=== PATIENT | male | born 1965 | race Two or more races ===

== ENCOUNTER 2018-03-19 08:21 | Day surgery (SDC) | payer SELFPAY ==
[2018-03-19 08:53] LABS: Absolute Lymphocytes (CBC) 1.2 K/uL (0.7-4.9); Absolute Monocytes 0.5 K/uL (0.1-1.3); Absolute Neutrophil 3.3 K/uL (1.8-8.0); Basophils % 0.6 % (0-1.3); Eosinophils % 1.8 % (0-4.4); Hematocrit 46.6 % (39.6-49.0); Lymphocytes % 23.9 % (15.3-44.8); MPV 9.5 fL (7.6-11.3); Monocytes % 9.5 % (3.3-12.3); RBC Red Blood Cell Count 5.19 M/uL (4.33-5.43)
[2018-03-19 08:59] LABS: Protime INR 0.89
[2018-03-19 09:11] LABS: ALT/SGPT 38 U/L (12-78); AST/SGOT 26 U/L (15-37); Albumin 4.1 g/dL (3.4-5.0); Alkaline Phosphatase 110 U/L (45-117); BUN Blood Urea Nitrogen 16 mg/dL (7-18); Bicarbonate 27 mmol/L (21-32); Bilirubin Direct < 0.1 mg/dL (0-0.2); Bilirubin Total 0.2 mg/dL (0.2-1.0); Glucose Level 117 mg/dL (74-106); Magnesium 2.3 mg/dL (1.8-2.4); NT PRO-BNP 16 pg/mL (<125); Potassium 4.2 mmol/L (3.5-5.1); Protein, Total 7.8 g/dL (6.4-8.2); Sodium Level 140 mmol/L (136-145); Troponin (Emerg Dept Use Only) < 0.02 ng/mL (0.0-0.045)
[2018-03-19] MEDS ORDERED: ASPIRIN 81 MG CHEWABLE TABLET ONE (09:18)
[2018-03-19] MEDS ORDERED: D5 0.45 NS 1,000 ML with POTASSIUM CL 10 MEQ IV SCH ×2 (09:30)
--- NOTE | 2018-03-19 09:35 | EDPHYS ---
Physician Documentation [facility] Name: Ney Mortensen Age: 52 yrs Sex: Male : 1965 Arrival Date: 03/19/2018 Time: 08:23 Bed 8 Private MD: None, None ED Physician Stefanie Rome HPI: 03/19 08:46 This 52 yrs old Male presents to ER via Ambulatory with complaints of Chest Pain. ma2 08:46 The patient or guardian reports chest pain that is located primarily in the substernal ma2 area, epigastric area. Onset: gradually, 2 day(s) ago. Historical: - Allergies: 08:35 No Known Allergies; hb - Home Meds: 08:35 None [Active]; hb - PMHx: 08:35 High Cholesterol; hb - PSHx: 08:35 None; hb - Immunization history:: Adult Immunizations up to date. - Social history:: Smoking status: Patient uses tobacco products, cigars, Patient/guardian denies using alcohol, street drugs, The patient lives with family. - Ebola Screening: : No symptoms or risks identified at this time. - Family history:: not pertinent. - Hospitalizations: : No recent hospitalization is reported. ROS: 08:50 Constitutional: Negative for fever, chills, and weight loss. ma2 08:50 Neck: Negative for injury, pain, and swelling, Respiratory: Negative for shortness of breath, cough, wheezing, and pleuritic chest pain, Abdomen/GI: Negative for abdominal pain, nausea, diarrhea, and constipation. 08:50 Cardiovascular: Positive for chest pain, Negative for edema, orthopnea, paroxysmal nocturnal dyspnea. 08:50 All other systems are negative. Exam: 08:50 Constitutional: This is a well developed, well nourished patient who is awake, alert, ma2 and in no acute distress. Head/Face: Normocephalic, atraumatic. 08:50 Chest/axilla: Normal chest wall appearance and motion. Nontender with no deformity. No lesions are appreciated. Cardiovascular: Regular rate and rhythm with a normal S1 and S2. No gallops, murmurs, or rubs. Normal PMI, no JVD. No pulse deficits. Respiratory: Lungs have equal breath sounds bilaterally, clear to auscultation and percussion. No rales, rhonchi or wheezes noted. No increased work of breathing, no retractions or nasal flaring. Abdomen/GI: Soft, non-tender, with normal bowel sounds. No distension or tympany. No guarding or rebound. No evidence of tenderness throughout. MS/ Extremity: Pulses equal, no cyanosis. Neurovascular intact. Full, normal range of motion. Neuro: Awake and alert, GCS 15, oriented to person, place, time, and situation. Cranial nerves II-XII grossly intact. Motor strength 5/5 in all extremities. Sensory grossly intact. Cerebellar exam normal. Normal gait. 08:50 Cardiovascular: Rate: normal, Edema: is not appreciated, JVD: is not appreciated. Vital Signs: 08:35 BP 159 / 104; Pulse 72; Resp 16; Temp 97.7; Pulse Ox 99% on R/A; Pain 7/10; hb 09:43 BP 143 / 92; Pulse 68; Resp 16; Temp 98.0; Pulse Ox 96% ; lt1 11:00 BP 134 / 96; Pulse 66; Resp 16 S; Pulse Ox 97% on R/A; jl7 MDM: 08:32 Patient medically screened. ma2 08:50 Differential diagnosis: abnormal EKG, acute pericarditis, anxiety, coronary artery ma2 disease chest wall pain, gastroesophageal reflux disease (GERD), myocarditis. The patient was given aspirin in the Emergency Department. GUILLERMINA Risk Score: not applicable. 09:05 Data reviewed: vital signs, nurses notes. Data interpreted: ekg monitor:. ma2 Counseling: I had a detailed discussion with the patient and/or guardian regarding: the historical points, exam findings, and any diagnostic results supporting the discharge/admit diagnosis, the presence of at least one elevated blood pressure reading (>120/80) during this emergency department visit, the need for further work-up and treatment in the hospital. ED course: discussed with dr. wasserman who recommend admission npo for cath today no stemi on ekg . 10:14 ED course: discussed w dr armstrong . ut2 03/19 08:33 Order name: Basic Metabolic Panel; Complete Time: 09:13 ut2 03/19 08:33 Order name: CBC with Diff; Complete Time: 09:13 ut2 03/19 08:33 Order name: LFT's; Complete Time: 09:13 ut03/19 08:33 Order name: Magnesium; Complete Time: 09:13 ut03/19 08:33 Order name: NT PRO-BNP; Complete Time: 09:13 ut03/19 08:33 Order name: PT-INR; Complete Time: 09:13 ut03/19 08:33 Order name: Troponin (emerg Dept Use Only); Complete Time: 09:13 ut03/19 08:33 Order name: XRAY Chest (1 view) [facility] 03/19 08:33 Order name: EKG; Complete Time: 08:33 ut03/19 08:33 Order name: Cardiac monitoring; Complete Time: 08:45 [facility] 03/19 08:33 Order name: EKG - Nurse/Tech; Complete Time: 09:13 [facility] 03/19 08:49 Order name: Lipid Profile [facility] 03/19 08:33 Order name: IV Saline Lock; Complete Time: 08:45 ut03/19 08:33 Order name: Labs collected and sent; Complete Time: 08:45 [facility] 03/19 08:33 Order name: O2 Per Protocol; Complete Time: 08:45 ut03/19 08:33 Order name: O2 Sat Monitoring; Complete Time: 08:45 ut03/19 09:14 Order name: NPO; Complete Time: 09:49 ma2 Administered Medications: 09:13 Drug: Aspirin Chewable Tablet 324 mg Route: PO; jl7 09:49 Follow up: Response: No adverse reaction jl7 09:48 Drug: Dextrose 5 % in 1/2 Normal Saline with KCl 10 mEq/L 1000 ml Route: IV; Rate: 100 jl7 ml/hr; Site: right antecubital; Disposition: 03/19/18 09:34 Hospitalization ordered by Mercedes Armstrong for Observation. Preliminary diagnosis is Unstable angina. - Bed requested for Telemetry/MedSurg (observation). - Status is Observation. jl7 - Condition is Stable. - Problem is new. - Symptoms are unchanged. UTI on Admission? No Signatures: Dispatcher [employer] EDMS Hiral Todd RN RITO Vaishali Tavarez RN RN jl7 Stefanie Rome MD MD ma2 Corrections: (The following items were deleted from the chart) 11:38 09:34 Hospitalization Ordered by Mercedes Armstrong MD for Observation. Preliminary diagnosis jl7 is Unstable angina. Bed requested for Telemetry/MedSurg (observation). Status is Observation. Condition is Stable. Problem is new. Symptoms are unchanged. UTI on Admission? No. ma2
--- NOTE | 2018-03-19 09:35 | ER ---
Nurse's Notes [facility] Name: Ney Mortensen Age: 52 yrs Sex: Male : 1965 Arrival Date: 03/19/2018 Time: 08:23 Bed 8 Private MD: None, None Diagnosis: Unstable angina Presentation: 03/19 08:34 Presenting complaint: Patient states: Intermittent left sided chest pain that started hb last night while at rest. Denies SOB/nausea. Pain is described as squeezing, does not radiate. Transition of care: patient was not received from another setting of care. Onset of symptoms was March 18, 2018. Risk Assessment: Do you want to hurt yourself or someone else? Patient reports no desire to harm self or others. Initial Sepsis Screen: Does the patient meet any 2 criteria? No. Patient's initial sepsis screen is negative. Does the patient have a suspected source of infection? No. Patient's initial sepsis screen is negative. Care prior to arrival: None. 08:34 Method Of Arrival: Ambulatory hb 08:34 Acuity: PATRICK 3 hb Historical: - Allergies: 08:35 No Known Allergies; hb - Home Meds: 08:35 None [Active]; hb - PMHx: 08:35 High Cholesterol; hb - PSHx: 08:35 None; hb - Immunization history:: Adult Immunizations up to date. - Social history:: Smoking status: Patient uses tobacco products, cigars, Patient/guardian denies using alcohol, street drugs, The patient lives with family. - Ebola Screening: : No symptoms or risks identified at this time. - Family history:: not pertinent. - Hospitalizations: : No recent hospitalization is reported. Screenin:36 Abuse screen: Denies threats or abuse. Denies injuries from another. Nutritional hb screening: No deficits noted. Tuberculosis screening: No symptoms or risk factors identified. Fall Risk None identified. Assessment: 08:45 General: Appears in no apparent distress. uncomfortable, Behavior is cooperative, jl7 anxious. Pain: Complains of pain in anterior aspect of left upper chest Pain does not radiate. Pain currently is 6 out of 10 on a pain scale. Quality of pain is described as squeezing, Pain began 1 day ago. Is intermittent. Neuro: Level of Consciousness is awake, alert, obeys commands, Oriented to person, place, time, situation. Cardiovascular: Reports diaphoresis, Denies nausea, shortness of breath, Heart tones S1 S2 present Rhythm is sinus rhythm. Respiratory: Airway is patent Respiratory effort is even, unlabored, Respiratory pattern is regular, symmetrical, Breath sounds are clear bilaterally. GI: No signs and/or symptoms were reported involving the gastrointestinal system. : No signs and/or symptoms were reported regarding the genitourinary system. EENT: No signs and/or symptoms were reported regarding the EENT system. Derm: Skin is diaphoretic, Skin is normal, Skin temperature is warm. Musculoskeletal: No signs and/or symptoms reported regarding the musculoskeletal system. 10:00 Reassessment: Patient appears in no apparent distress at this time. No changes from jl7 previously documented assessment. Patient and/or family updated on plan of care and expected duration. Pain level reassessed. Patient is alert, oriented x 3, equal unlabored respirations, skin warm/dry/pink. 11:00 Reassessment: Patient appears in no apparent distress at this time. No changes from jl7 previously documented assessment. Patient and/or family updated on plan of care and expected duration. Pain level reassessed. Patient is alert, oriented x 3, equal unlabored respirations, skin warm/dry/pink. Vital Signs: 08:35 BP 159 / 104; Pulse 72; Resp 16; Temp 97.7; Pulse Ox 99% on R/A; Pain 7/10; hb 09:43 BP 143 / 92; Pulse 68; Resp 16; Temp 98.0; Pulse Ox 96% ; lt1 11:00 BP 134 / 96; Pulse 66; Resp 16 S; Pulse Ox 97% on R/A; jl7 ED Course: 08:23 Patient arrived in ED. mr 08:24 None, None is Private Physician. mr 08:32 Stefanie Rome MD is Attending Physician. ma2 08:35 Triage completed. hb 08:35 Arm band placed on. hb 08:44 Vaishali Tavarez RN is Primary Nurse. jl7 08:45 Patient has correct armband on for positive identification. Placed in gown. Bed in low jl7 position. Call light in reach. Side rails up X 1. student services representative on. Pulse ox on. NIBP on. 08:45 Initial lab(s) drawn, by me, sent to lab. Inserted saline lock: 20 gauge in right jl7 antecubital area, using aseptic technique. Blood collected. Patient maintains SpO2 saturation greater than 95% on room air. 08:53 X-ray completed. Portable x-ray completed in exam room. Patient tolerated procedure [facility] well. 08:54 XRAY Chest (1 view) In Process Unspecified. EDSC 09:34 Mercedes Sosa MD is Hospitalizing Provider. ma2 10:19 EKG done, by bomb technician. reviewed by Stefanie Rome MD. tc 11:37 No provider procedures requiring assistance completed. Patient admitted, IV remains in jl7 place. intact, No redness/swelling at site. Administered Medications: 09:13 Drug: Aspirin Chewable Tablet 324 mg Route: PO; [facility] 09:49 Follow up: Response: No adverse reaction [facility] 09:48 Drug: Dextrose 5 % in 1/2 Normal Saline with KCl 10 mEq/L 1000 ml Route: IV; Rate: 100 jl7 ml/hr; Site: right antecubital; Output: 10:57 Urine: 650ml (Voided); Total: 650ml. lt1 Outcome: 09:34 Decision to Hospitalize by Provider. ma2 11:37 Admitted to Air Twist Operator accompanied by nurse, via stretcher, on monitor. jl7 11:37 Condition: stable 11:37 Discharge instructions given to patient, family, Instructed on the need for admit, Demonstrated understanding of instructions. 11:38 Patient left the ED. [facility] Signatures: Dispatcher [employer] EDSC Natanael Phan Rainfany, windows infrastructure engineer EKG Ttc Hiral Todd RN RN hb Leal, Jahala, RN RN [facility] Kat Liang [facility] Stefanie Rome MD MD ma2 Tran, Leah 1
--- NOTE | 2018-03-19 10:55 | RAD REPORT ---
EXAM DESCRIPTION: RAD - Chest Single View - 03/19/2018 8:55 am CLINICAL HISTORY: CHEST PAIN Chest pain. COMPARISON: No comparisons FINDINGS: Portable technique limits examination quality. The lungs are grossly clear. The heart is normal in size. No displaced fractures. IMPRESSION: No acute intrathoracic process suspected.
[2018-03-19] MEDS ORDERED: NA CHLORIDE 0.9% 500 ML ONE (11:39)
[2018-03-19] MEDS ORDERED: MIDAZOLAM HCL 2 MG/2 ML INJ ONE (11:39)
[2018-03-19] MEDS ORDERED: HEPA 1000U/500MLS 1,000 UNIT/500 ML BAG IV ONE (11:39)
[2018-03-19] MEDS ORDERED: NA CHLORIDE 0.9% 0 ML ONE (11:40)
[2018-03-19] MEDS ORDERED: FENTANYL CITR 100 MCG/2 ML ONE (11:40)
[2018-03-19] MEDS ORDERED: ATROPINE SULF 1 MG/10 ML SYR IV ONE (11:40)
[2018-03-19] MEDS ORDERED: LIDOCAINE 1% MPF 30 ML VIAL ONE (11:56)
--- NOTE | 2018-03-19 12:25 | OP ---
Surgeon: Steve Flynn MD [place] [employer] Pumper: James Sue. Procedure Note: The patient admitted to Dr. Sosa's service on 03/19/2018 via the emergency room aft er he was sent from the office for unstable angina type symptoms. He has presumably had a positive s tress test in the past. Procedure Performed: Brought to the cathode ray tube salvage processor today for left heart catheterization and selective dawn nary arteriogram. Indication: Unstable angina. History of positive stress test. Multiple cardiac risk factors. Procedure In Detail: A 6-Malay sheath was introduced in the right common femoral artery successfull y. Angio-Seal was used to close the case. A 6-Malay Sonam catheter left and right were used to c annulate the left main and right main respectively. He was found to have normal coronaries. There w ere no complications. Blood Loss: 5 cc. Postoperative Diagnosis: Chest pain. Normal coronaries. Plan: We will treat him medically for hypertension and palpitations. MAYELIN/YUE Voice ID: [id number] Report ID: [id number]
--- NOTE | 2018-03-19 13:04 | CON ---
Date of Consultation: 03/19/2018 Reason For Consultation: Unstable angina. History Of Present Illness: Mr. Mortensen is a 52-year-old white male without any significant cardiac his tory per se, although he had a stress test that was positive by Dr. Jones about a year ago. He als o has history of hypertension, dyslipidemia, and tobacco use. Noncompliant with medication. Had ken n recommended a heart catheterization in the past, but had elected to observe. Woke up yesterday wit h severe chest pain, substernal, radiating to the left arm, lasted about 2 hours, became very diaphor etic and short of breath. Came into my office initially and then was sent to the emergency room for further evaluation and treatment. EKG was normal. Past Medical History: As stated above. Allergies: NONE. Review of Systems: Negative. Social History: Positive for tobacco. Family History: Positive for heart disease. Medications At Home: Include aspirin. He has been trying to take [id number] medication for hi s cholesterol. Physical Examination: Vital Signs: His blood pressure was 123/82, his pulse was 76. HEENT: Negative. Neck: Supple with no bruit. Chest: Clear to auscultation and percussion. Cardiac: Revealed a regular rhythm and rate without any murmurs, gallops, or rubs. Abdomen: Benign. Extremities: Revealed no clubbing, cyanosis, or edema. Diagnostic Data: Within normal limits. His creatinine is 0.84. Troponin 0.02. Hemoglobin is 16.0. Potassium was 4.2. Impression And Plan: The patient with multiple cardiac risk factors for heart disease including hype rtension, dyslipidemia, tobacco use, family history, and hypertension. Had a positive stress test ab out a year. Unstable angina symptoms right now. We will proceed with a left heart catheterization t o define his coronary anatomy. The patient understands the risks and the benefits of the procedure a nd he agrees to proceed. He should be on aspirin, beta blockers, and statin. We will make decisions after the catheterization regarding further therapy. MAYELIN/YUE Voice ID: [id number] Report ID: [id number]
--- NOTE | 2018-03-19 14:23 | P.SSS ---
Patient History Date of Service: 03/19/18 Primary Care Provider: Darlene Saavedra Reason for admission: Chest pain History of Present Illness: Patient is a 52-year-old male with past medical history of hypertension hyperlipidemia not on medications other than baby aspirin comes in w sudden onset of chest pain and palpitations. Patient's symptoms are constant moderate progressively worsening. Patient's chest pain was substernal nonradiating not associated with any nausea vomiting. In the ER the patient's workup showed uncontrolled blood pressure. Chest x-ray was negative initial troponin and EKG were also negative. Patient was referred for admission for unstable angina. Patient was taken directly to the director of cath lab by cardiology Allergies No Known Allergies Allergy (Unverified 03/19/18 13:38) Home medications list reviewed: Yes Home Medications: Aspirin [Aspirin EC 81 MG] 81 mg PO DAILY #30 tablet.dr 03/19/18 Atorvastatin Calcium [Lipitor] 20 mg PO DAILY #30 tablet 03/19/18 Metoprolol Succinate [Toprol Xl] 25 mg PO DAILY #30 tab.sr.24h 03/19/18 - Past Medical/Surgical History Has patient received pneumonia vaccine in the past: No Diabetic: No -: Hypertension -: Hyperlipidemia Past Surgical History: Patient denies surgical history -: bilat hernia sx - Family History Family History: Reviewed- Non-Contributory (Denies any premature coronary artery disease in the family) - Social History Smoking Status: Never smoker Alcohol use: Yes CD- Drugs: No Caffeine use: No Place of Residence: Home Review of Systems 10-point ROS is otherwise unremarkable Cardiovascular: As per HPI Physical Examination - Vital Signs Temperature: 98 F Blood Pressure: 145/83 Pulse: 59 Respirations: 20 Pulse Ox (%): 98 - Physical Exam General: Alert, In no apparent distress, Oriented x3 HEENT: Atraumatic, PERRLA, Mucous membr. moist/pink, EOMI, Sclerae nonicteric Neck: Supple, 2+ carotid pulse no bruit, No LAD, Without JVD or thyroid abnormality Respiratory: Clear to auscultation bilaterally, Normal air movement Cardiovascular: No edema, Normal pulses, Regular rate/rhythm, Normal S1 S2 Gastrointestinal: Normal bowel sounds, Soft and benign, Non-distended, No tenderness Musculoskeletal: No clubbing, No swelling, No tenderness Integumentary: No rashes, No erythema, Other (Catheterization site clean dry intact no hematoma) Neurological: Normal gait, Normal speech, Normal strength at 5/5 x4 extr, Normal tone, Sensation intact, Cranial nerves 3-12 intact, Normal affect - Studies Laboratory Data (last 24 hrs) 03/19/18 08:49: Triglycerides 263 H, Cholesterol 217 H, HDL Cholesterol 38 L, Cholesterol/HDL Ratio 5.71 03/19/18 08:42: PT 10.5, INR 0.89 03/19/18 08:42: WBC 5.1, Hgb 16.0, Hct 46.6, Plt Count 210 03/19/18 08:42: Sodium 140, Potassium 4.2, BUN 16, Creatinine 0.84, Glucose 117 H, Magnesium 2.3, Total Bilirubin 0.2, AST 26, ALT 38, Alkaline Phosphatase 110 Imagings Data: Chest x-ray no acute cardiopulmonary process - Diagnosis (Problem(s)) (1) Chest pain Current Visit: Yes Status: Acute Qualifiers: Chest pain type: precordial pain Qualified Code(s): R07.2 - Precordial pain (2) HTN (hypertension) Current Visit: Yes Status: Acute Qualifiers: Hypertension type: essential hypertension Qualified Code(s): I10 - Essential (primary) hypertension (3) Dyslipidemia Current Visit: Yes Status: Acute (4) Palpitations Current Visit: Yes Status: Acute Treatment Summary: Patient was admitted to the hospital for chest pain rule out ACS. patient taken to the director of cath lab for left heart catheterization and was found to have normal coronary arteries. Patient likely has some palpitations related to elevated blood pressure. Patient was seen by cardiology Dr. Flynn. patient was then cleared for discharge. He was counseled regarding diet and exercise. He stated that he has been avoiding taking cholesterol medication due to side effects of myopathy which he has never experienced. he will be sent home on metoprolol and low-dose statin as well as baby aspirin. Patient was discharged in stable condition . Chest pain-free - Disposition Discharge Date: 03/19/18 Disposition: ROUTINE DISCHARGE Condition: FAIR Patient Discharge Instructions: f/up w PCP in 2-3 days. f/up w wood polisher Dr. Flynn in 2 weeks. Return to ER for worsening condition Diet: AHA Activity: Ad max
--- NOTE | 2018-03-19 15:36 | EKG ---
Test Date: 2018-03-19 Test Time: 08:53:23 Zipper Ironer: KAREN MEASUREMENT RESULTS: Intervals: Rate: 65 AK: 178 QRSD: 96 QT: 404 QTc: 420 [place]: P: 44 AK: 178 QRS: 17 T: 30 INTERPRETIVE STATEMENTS: Normal sinus rhythm Minimal voltage criteria for LVH, may be normal variant Borderline ECG No previous ECG available for comparison Electronically Signed On 03-19-18 15:34:48 DEALER CARD ROOM by Steve Flynn
== END 2018-03-19 15:22 | disposition home or self-care (01) ==
LOC: ER 08:21 → ERHOLD 10:36 → UNDOADMOB 10:36 → OR 12:21 → 4TH 12:21 → OR 15:22
PROVIDERS: ATTEND Family Medicine
DX: I20.0 Unstable angina (principal); R07.2 Precordial pain; R00.2 Palpitations; E78.5 Hyperlipidemia, unspecified; I10 Essential (primary) hypertension; F17.290 Nicotine dependence, other tobacco product, uncomplicated; Z79.82 Long term (current) use of aspirin; Z82.49 Family history of ischemic heart disease and other diseases of the circulatory system
CPT/HCPCS: 36415; 71045; 80048; 80061; 80076; 83735; 83880; 84484; 85025; 85610; 93005; 93454; 96374; 99285; C1760; C1893; J0583; J2250; J3010